=== PATIENT | female | born 1995 | race Caucasian/White ===

== ENCOUNTER 2018-06-11 08:15 | Emergency (ER) | payer OTHER, SELFPAY ==
[2018-06-11 08:31] VITALS: BP 159/95; PULSE 95; RESP 20; TEMP 36.9; O2SAT 100; BMI 25.3
--- NOTE | 2018-06-11 08:50 | ED.HA ---
HPI - Headache General Chief Complaint: Headache Stated Complaint: MIGRAINE Time Seen by Provider: 06/11/18 08:17 Source: patient Mode of arrival: ambulatory Limitations: no limitations History of Present Illness HPI Narrative: Patient is a 22-year-old otherwise healthy female here for evaluation of a headache. She states has been going on for the past 3 days. Was of gradual onset. She states the 1st day she did not think much of it however it did get worse the 2nd day. She states that approximately 1 month ago she had a headache very similar to this 1 that improved with [id number] Advil. She attributed that headache to being ?hung over ?prior to that headaches she has never had headache in the past. She states that the this headache is very similar in character to the last 1 only was not improving with Advil. No neck pain. No trauma. Is starting a new job so was ?stressed out? over that. Related Data Previous Rx's Medication Instructions Recorded [id number] 1 cap PO Q4H PRN #10 cap 06/11/18 [Fioricet] Review of Systems Constitutional Denies chills, Denies fatigue, Denies fever(s), Reports headache(s), Denies lethargy and Denies malaise Eyes Denies blurry vision, Denies change in vision, Denies diplopia, Denies loss of vision, Denies photophobia and Denies tunnel vision ENT Ears, Nose, Mouth, and Throat: Denies vertigo, Denies dizziness, Reports headache(s), Denies neck pain, Denies disequilibrium, Denies sore throat and Denies throat swelling Cardiovascular Denies chest pain, Denies syncope, Denies edema and Denies dyspnea Respiratory Denies cough and Denies dyspnea Gastrointestinal Gastrointestinal: Denies abdominal pain, Denies constipation, Denies diarrhea, Denies nausea and Denies vomiting Musculoskeletal Denies myalgias, Denies arthralgias, Denies neck pain, Denies numbness and Denies tingling Integumentary/Breasts Denies lesions and Denies rash Neurologic Denies abnormal speech, Denies behavioral changes, Denies confusion, Denies vertigo, Denies dizziness, Denies syncope, Reports headache(s), Denies loss of vision, Denies numbness, Denies convulsions, Denies tingling, Denies paresthesias and Denies disequilibrium Psychiatric Denies behavioral changes and Denies confusion Endocrine Denies fatigue Hematologic/Lymphatic Denies easy bleeding and Denies easy bruising Allergic/Immunologic Denies urticaria and Denies throat swelling FOR[facility]LY [facility] Medical History Healthy adult (Acute) Surgical History No pertinent past surgical history (Acute) Social History Smoking Status: Former smoker Exam Initial Vital Signs Initial Vital Signs: Vital Signs Temperature 98.4 F 06/11/18 08:31 Pulse Rate 95 H 06/11/18 08:31 Respiratory Rate 20 06/11/18 08:31 Blood Pressure 159/95 H 06/11/18 08:31 Pulse Oximetry 100 06/11/18 08:31 Const General: cooperative, healthy appearing, comfortable, well developed, well groomed and No acute distress Orientation: alert, awake and oriented x3 HENMT Head: normal to inspection, normocephalic and atraumatic Ears: hearing grossly normal bilaterally and TM's normal bilaterally Nose: external nose normal Face and sinus: normal facial exam and face symmetric Mouth: oral mucosae normal Teeth and gingiva: dentition normal Throat: posterior oropharynx normal Eyes General: appearance normal, both eyes and all related structures Pupils: PERRL EOM: EOM intact bilaterally Neck Neck: full ROM and no meningeal signs Resp Effort & Inspection: normal respiratory effort Auscultation: clear to auscultation bilaterally Cardio Rate: regular rate Rhythm: regular rhythm GI Inspection: non-distended Palpation: soft, No firm and No tender Skin Lesions: no lesions Rashes: no rashes Neuro General: alert, awake and oriented x3 Cranial Nerves: CN's II-XI intact bilaterally Cognition: normal cognition Speech: speech normal Gait: normal gait Motor: muscle tone normal throughout Sensory Exam: no sensory deficits noted Extrem General: normal to inspection, full ROM and capillary refill normal Psych Appearance: grossly normal and well kempt Course Orders Ordered: Discontinued Medications Acetaminophen (Tylenol) 975 mg PO NOW ONE Stop: 06/11/18 08:49 Last Admin: 06/11/18 09:24 Dose: 975 mg Diphenhydramine HCl (Benadryl) 25 mg IV NOW ONE Stop: 06/11/18 08:49 Last Admin: 06/11/18 09:24 Dose: 25 mg Sodium Chloride (Normal Saline 0.9%) 1,000 mls @ 1,000 mls/hr IV BOLUS ONE Stop: 06/11/18 09:47 Last Admin: 06/11/18 09:25 Dose: 1,000 mls/hr Metoclopramide HCl (Reglan) 10 mg IV NOW ONE Stop: 06/11/18 08:49 Last Admin: 06/11/18 09:25 Dose: 10 mg Vital Signs - 8 hr 06/11/18 08:31 06/11/18 09:30 Temperature 98.4 F Pulse Rate 95 H 81 Respiratory Rate 20 17 Blood Pressure 159/95 H Blood Pressure [Left Arm] 136/92 H Pulse Oximetry 100 100 MDM - Headache MDM Narrative Medical decision making narrative: Patient with a almost complete resolution of her headache after IV medications here in the emergency department. She has a normal neurologic exam. Was gradual onset. No fevers. Physical exam is not consistent with meningitis. I have a low suspicion for subarachnoid hemorrhage. No trauma. Will hold on CT scan for now. Will send home with a prescription for Fioricet. She was given return precautions. She expressed understanding and agreement with plan. Discharge Plan Departure Patient Disposition: Home Clinical Impression: Headache Instructions: DI for Headache Activity Restrictions/Additional Instructions: Call your primary care doctor for a follow-up. Return to the emergency department for any new or worsening symptoms. Prescriptions: New [id number] [Fioricet] 50-300-40 mg capsule 1 cap PO Q4H PRN (Reason: pain) Qty: 10 RF: 0
--- NOTE | 2018-06-11 08:54 | ED_ITS ---
HPI - Headache General Chief Complaint: Headache Stated Complaint: MIGRAINE Time Seen by Provider: 06/11/18 08:17 Source: patient Mode of arrival: ambulatory Limitations: no limitations History of Present Illness HPI Narrative: Patient is a 22-year-old otherwise healthy female here for evaluation of a headache. She states has been going on for the past 3 days. Was of gradual onset. She states the 1st day she did not think much of it however it did get worse the 2nd day. She states that approximately 1 month ago she had a headache very similar to this 1 that improved with over-the- counter Advil. She attributed that headache to being ?hung over ?prior to that headaches she has never had headache in the past. She states that the this headache is very similar in character to the last 1 only was not improving with Advil. No neck pain. No trauma. Is starting a new job so was ?stressed out? over that. Related Data Previous Rx's Medication Instructions Recorded [id number] 1 cap PO Q4H PRN #10 cap 06/11/18 [Fioricet] Review of Systems Constitutional Denies chills, Denies fatigue, Denies fever(s), Reports headache(s), Denies lethargy and Denies malaise Eyes Denies blurry vision, Denies change in vision, Denies diplopia, Denies loss of vision, Denies photophobia and Denies tunnel vision ENT Ears, Nose, Mouth, and Throat: Denies vertigo, Denies dizziness, Reports headache(s), Denies neck pain, Denies disequilibrium, Denies sore throat and Denies throat swelling Cardiovascular Denies chest pain, Denies syncope, Denies edema and Denies dyspnea Respiratory Denies cough and Denies dyspnea Gastrointestinal Gastrointestinal: Denies abdominal pain, Denies constipation, Denies diarrhea, Denies nausea and Denies vomiting Musculoskeletal Denies myalgias, Denies arthralgias, Denies neck pain, Denies numbness and Denies tingling Integumentary/Breasts Denies lesions and Denies rash Neurologic Denies abnormal speech, Denies behavioral changes, Denies confusion, Denies vertigo, Denies dizziness, Denies syncope, Reports headache(s), Denies loss of vision, Denies numbness, Denies convulsions, Denies tingling, Denies paresthesias and Denies disequilibrium Psychiatric Denies behavioral changes and Denies confusion Endocrine Denies fatigue Hematologic/Lymphatic Denies easy bleeding and Denies easy bruising Allergic/Immunologic Denies urticaria and Denies throat swelling [facility] Medical History Healthy adult (Acute) Surgical History No pertinent past surgical history (Acute) Social History Smoking Status: Former smoker Exam Initial Vital Signs Initial Vital Signs: Vital Signs Temperature 98.4 F 06/11/18 08:31 Pulse Rate 95 H 06/11/18 08:31 Respiratory Rate 20 06/11/18 08:31 Blood Pressure 159/95 H 06/11/18 08:31 Pulse Oximetry 100 06/11/18 08:31 Const General: cooperative, healthy appearing, comfortable, well developed, well groomed and No acute distress Orientation: alert, awake and oriented x3 HENMT Head: normal to inspection, normocephalic and atraumatic Ears: hearing grossly normal bilaterally and TM's normal bilaterally Nose: external nose normal Face and sinus: normal facial exam and face symmetric Mouth: oral mucosae normal Teeth and gingiva: dentition normal Throat: posterior oropharynx normal Eyes General: appearance normal, both eyes and all related structures Pupils: PERRL EOM: EOM intact bilaterally Neck Neck: full ROM and no meningeal signs Resp Effort & Inspection: normal respiratory effort Auscultation: clear to auscultation bilaterally Cardio Rate: regular rate Rhythm: regular rhythm GI Inspection: non-distended Palpation: soft, No firm and No tender Skin Lesions: no lesions Rashes: no rashes Neuro General: alert, awake and oriented x3 Cranial Nerves: CN's II-XI intact bilaterally Cognition: normal cognition Speech: speech normal Gait: normal gait Motor: muscle tone normal throughout Sensory Exam: no sensory deficits noted Extrem General: normal to inspection, full ROM and capillary refill normal Psych Appearance: grossly normal and well kempt Course Orders Ordered: Discontinued Medications Acetaminophen (Tylenol) 975 mg PO NOW ONE Stop: 06/11/18 08:49 Last Admin: 06/11/18 09:24 Dose: 975 mg Diphenhydramine HCl (Benadryl) 25 mg IV NOW ONE Stop: 06/11/18 08:49 Last Admin: 06/11/18 09:24 Dose: 25 mg Sodium Chloride (Normal Saline 0.9%) 1,000 mls @ 1,000 mls/hr IV BOLUS ONE Stop: 06/11/18 09:47 Last Admin: 06/11/18 09:25 Dose: 1,000 mls/hr Metoclopramide HCl (Reglan) 10 mg IV NOW ONE Stop: 06/11/18 08:49 Last Admin: 06/11/18 09:25 Dose: 10 mg Vital Signs - 8 hr 06/11/18 08:31 06/11/18 09:30 Temperature 98.4 F Pulse Rate 95 H 81 Respiratory Rate 20 17 Blood Pressure 159/95 H Blood Pressure [Left Arm] 136/92 H Pulse Oximetry 100 100 MDM - Headache MDM Narrative Medical decision making narrative: Patient with a almost complete resolution of her headache after IV medications here in the emergency department. She has a normal neurologic exam. Was gradual onset. No fevers. Physical exam is not consistent with meningitis. I have a low suspicion for subarachnoid hemorrhage. No trauma. Will hold on CT scan for now. Will send home with a prescription for Fioricet. She was given return precautions. She expressed understanding and agreement with plan. Discharge Plan Departure Patient Disposition: Home Clinical Impression: Headache Instructions: DI for Headache Activity Restrictions/Additional Instructions: Call your primary care doctor for a follow-up. Return to the emergency department for any new or worsening symptoms. Prescriptions: New amdlpojyag-ihknmyxzwskmz-acag [Fioricet] 50-300-40 mg capsule 1 cap PO Q4H PRN (Reason: pain) Qty: 10 RF: 0
[2018-06-11] MEDS: diphenhydrAMINE 50 MG/ML VIAL 25 MG IV (09:24)
[2018-06-11] MEDS: ACETAMINOPHEN 325 MG TABLET 975 MG PO (09:24)
[2018-06-11] MEDS: SODIUM CHLORIDE 0.9% 1,000 ML 1000 ML IV (09:25)
[2018-06-11] MEDS: METOCLOPRAMIDE 10 MG/2 ML INJ IV (09:25)
[2018-06-11 09:30] VITALS: BP 136/92; PULSE 81; RESP 17; O2SAT 100
[2018-06-11 10:47] VITALS: BP 126/85; PULSE 82; RESP 16; O2SAT 100
== END 2018-06-11 10:50 | disposition home or self-care (01) ==
PROVIDERS: Emergency Provider Emergency Medicine
DX: R51 Headache (principal)
CPT/HCPCS: 36591; 81003; 81025; 96361; 96374; 96375; 99283; J1200; J2765